=== PATIENT | male | born 1945 | race Two or more races ===

== ENCOUNTER → 2020-02-17 | Outpatient (CLI) | payer MEDICARE ==
[~2020-02-17] MED LIST: ASPI81TA45 PO; ATOR10TA PO; BOSWELLIA EXTRACT; CHOL10003 PO; ECUL300V IV; GLUC1CAP48 PO; LOSA100T14 PO; OMEG1CAP23 PO; PROP10DR2 EACHEYE; PYRI60TA2 PO; S-AD400T3 PO; [UNRECOGNIZED DRUG - REMARK]; [UNRECOGNIZED DRUG - REMARK] PO
== END | disposition home or self-care (01) ==
LOC: STAR 10:53
PROVIDERS: ATTEND Surgery Surgery of the Hand
DX: Z01.812 Encounter for preprocedural laboratory examination (principal); Z20.828 Contact with and (suspected) exposure to other viral communicable diseases; M18.11 Unilateral primary osteoarthritis of first carpometacarpal joint, right hand
CPT/HCPCS: 36415; 80053; 87635; 93005

== ENCOUNTER 2020-02-23 07:57 | Day surgery (SDC) | payer MEDICARE ==
[2020-02-17 12:18] LABS: ALANINE AMINOTRANSFERASE 26 U/L (12-78); ALBUMIN 3.8 g/dL (3.4-5.0); ANION GAP 2 mmol/L (5-15); CALCIUM 8.7 mg/dL (8.5-10.1); CHLORIDE 111 mmol/L (98-107)
[2020-02-17 12:21] LABS: ALKALINE PHOSPHATASE 93 U/L (45-117); CREATININE 1.59 mg/dL (0.7-1.3); TOTAL PROTEIN 7.5 g/dL (6.4-8.2)
[~2020-02-23] VITALS: Ht 185.4 cm; Wt 93.3 kg
[~2020-02-23 07:57] MED LIST changes: +BUPIVACAINE/PF 0.5% ONE; +LIDOCAINE/PF 1%, 30ML ONE
[2020-02-23] MEDS ORDERED: LACTATED RINGERS 1,000 ML IV SCH (08:30)
[2020-02-23] MEDS ORDERED: CHLORHEXIDINE 15 ML UDC MM ONE (08:30)
[2020-02-23 08:33] VITALS: BP 118/77
[2020-02-23] MEDS ORDERED: CHLORHEXIDINE 15 ML UDC ONE (08:41)
[2020-02-23] MEDS ORDERED: FENTANYL PF 250 MCG/5ML ONE (08:44)
[2020-02-23] MEDS ORDERED: LIDOCAINE-MPF 2% ,5ML ONE ×2 (08:47)
[2020-02-23] MEDS ORDERED: CEFAZOLIN 1,000 MG ONE ×2 (08:47)
[2020-02-23] MEDS ORDERED: BUPIVACAINE/PF 0.5% ONE (08:48)
[2020-02-23] MEDS ORDERED: PROPOFOL 10 MG/ML, 20ML ONE ×2 (09:35→09:43)
[2020-02-23] MEDS ORDERED: PROPOFOL 10 MG/ML, 50ML ONE (09:43)
[2020-02-23] MEDS ORDERED: hydrALAzine 20 MG/ML, 1ML IV PRN (10:00)
[2020-02-23] MEDS ORDERED: ACETAMINOPHEN 325 MG TABLET PO PRN (10:00)
[2020-02-23] MEDS ORDERED: ONDANSETRON 2MG/ML, 2ML IVPush PRN (10:00)
[2020-02-23] MEDS ORDERED: LABETALOL 5MG/ML, 20ML IV PRN (10:00)
[2020-02-23] MEDS ORDERED: morphine SULFATE 10 MG/ML, 1ML IVPush PRN (10:00)
[2020-02-23] MEDS ORDERED: FENTANYL PF 100 MCG/2ML IV PRN (10:00)
[2020-02-23] MEDS ORDERED: HYDROmorphone 1 MG/ML, 1ML INJ IVPush PRN (10:00)
[2020-02-23] MEDS ORDERED: MEPERIDINE/PF 25MG/0.5ML IVPush PRN (10:00)
[2020-02-23] MEDS ORDERED: OXYcodone 5 MG/5 ML ORAL.SOL UDC PO PRN (10:00)
== END 2020-02-23 12:15 | disposition home or self-care (01) ==
LOC: OUT 07:57
PROVIDERS: ATTEND Surgery Surgery of the Hand
DX: M18.11 Unilateral primary osteoarthritis of first carpometacarpal joint, right hand (principal); G70.00 Myasthenia gravis without (acute) exacerbation; E78.5 Hyperlipidemia, unspecified; I10 Essential (primary) hypertension; Z79.1 Long term (current) use of non-steroidal anti-inflammatories (NSAID); Z79.82 Long term (current) use of aspirin; Z79.899 Other long term (current) drug therapy; Z98.890 Other specified postprocedural states; Z82.49 Family history of ischemic heart disease and other diseases of the circulatory system
CPT/HCPCS: 25447; 73140; J0690; J2704; J3010; J7120; 36415; 76000; 80053; 93005